=== PATIENT | male | born 1975 ===

== ENCOUNTER → 2022-08-23 13:52 | Outpatient (CLI) | payer OTHER, SELFPAY ==
--- NOTE | 2022-08-23 | DI.RAD.S_ITS ---
PROCEDURE: XR CHEST 2V INDICATIONS: SHORTNESS OF BREATH TECHNIQUE: 2 views of the chest were acquired. COMPARISON: None. FINDINGS: Surgical changes and devices: None. Lungs and pleura: Lungs are clear. No pleural effusions or pneumothorax. Mediastinum: Mediastinal contours are normal. Heart size is normal. Bones and chest wall: No suspicious bony abnormalities. Soft tissues appear unremarkable. IMPRESSION: No acute process. Dictated by: Richar Manzanares M.D. on 08/23/2022 at 15:56 Transcribed by: [email or web address] on 08/23/2022 at 15:56 Approved by: Richar Manzanares M.D. on 08/23/2022 at 16:51
[2022-08-23 15:40] LABS: COVID19 -Nasal RAPID Negative (Negative)
--- NOTE | 2022-08-29 08:12 | PM.PFT.1 ---
Pulmonary Function Test Referral & Results Date Patient Seen: 08/23/22 Requesting provider: Marcelo Ascencio Results: The spirometry demonstrates an FVC of 3.23 L which is 66% of predicted. The FEV1 was measured at 2.82 L which is 74% of predicted. The FEV1/FVC ratio was 87 which is 110% of predicted. Following the administration of bronchodilator there was a 12% improvement in FEF 25-75%. Interpretation: This study demonstrates possibly mild to moderate obstructive lung disease based on reduction FEV1, although FEV1/FVC ratio is preserved. There is only very limited evidence of benefit following bronchodilator as noted above only in small airway flow based on improvement in FEF 25-75% Clinical correlation suggested
== END ==
PROVIDERS: Referring Provider Chiropractor; Visit Provider Chiropractor
DX: R06.02 Shortness of breath (principal); Z20.822 Contact with and (suspected) exposure to COVID-19; J98.8 Other specified respiratory disorders
CPT/HCPCS: 71046; 87635; 94060; C9803